=== PATIENT | female | born 1955 | race Two or more races ===

== ENCOUNTER 2022-01-12 23:37 | Emergency (ER) | payer OTHER ==
[~2022-01-12] VITALS: Ht 165.1 cm; Wt 62.1 kg
[2022-01-12] MEDS ORDERED: CLONAZEPAM2 MG PO (23:49)
[2022-01-12] MEDS ORDERED: NEURONTIN800 MG PO (23:49)
[2022-01-12] MEDS ORDERED: SYNTHROID100 MCG PO (23:49)
[2022-01-13] MEDS ORDERED: METRONIDAZOLE500 MG PO (07:16)
[2022-01-13] MEDS ORDERED: CIPROFLOXACIN500 MG PO (07:16)
[2022-01-13] MEDS ORDERED: PEPCID AC20 MG PO (07:16)
[2022-01-13] MEDS ORDERED: INTESTINEX680 M1 PO (07:16)
[2022-01-13] MEDS ORDERED: ACETAMINOPHEN650 M2 PO (07:17)
[2022-01-13] MEDS ORDERED: LEVSIN0.125 MG PO (07:17)
== END 2022-01-13 07:23 | disposition home or self-care (01) ==
LOC: ER 23:37
DX: K57.92 Diverticulitis of intestine, part unspecified, without perforation or abscess without bleeding (principal); R10.84 Generalized abdominal pain; K76.89 Other specified diseases of liver; Z88.2 Allergy status to sulfonamides; Z88.6 Allergy status to analgesic agent

== ENCOUNTER 2022-01-14 11:50 | Outpatient (CLI) | payer OTHER ==
[~2022-01-14 11:50] MED LIST: ACETAMINOPHEN650 M2 PO; CIPROFLOXACIN500 MG PO; CLONAZEPAM2 MG PO; INTESTINEX680 M1 PO; LEVSIN0.125 MG PO; METRONIDAZOLE500 MG PO; NEURONTIN800 MG PO; PEPCID AC20 MG PO; SYNTHROID100 MCG PO
[2022-01-15] MEDS ORDERED: CLONAZEPAM2 MG PO (10:49)
== END 2022-01-14 12:02 | disposition home or self-care (01) ==
LOC: LAB 11:50
PROVIDERS: ATTEND Surgery
DX: R19.7 Diarrhea, unspecified (principal); R19.4 Change in bowel habit; R10.9 Unspecified abdominal pain; I10 Essential (primary) hypertension

== ENCOUNTER 2022-01-15 09:45 | Inpatient (IN) | payer OTHER ==
[~2022-01-15] VITALS: Ht 165.1 cm; Wt 62.1 kg
[2022-01-15] MEDS ORDERED: CLONAZEPAM2 MG PO (10:49)
[2022-01-18] MEDS ORDERED: ACETAMINOPHEN500 M1 (09:45)
[2022-01-18] MEDS ORDERED: MONTELUKAST SOD10 MG (09:45)
[2022-01-18] MEDS ORDERED: TIZANIDINE HCL6 MG (09:46)
[2022-01-18] MEDS ORDERED: ATORVASTATIN CA40 MG (09:46)
[2022-01-18] MEDS ORDERED: GEMFIBROZIL600 MG (09:46)
[2022-01-18] MEDS ORDERED: DULOXETINE HCL30 MG (09:46)
[2022-01-18] MEDS ORDERED: FERROUS SULFAT325 MG (09:46)
[2022-01-21] MEDS ORDERED: ULTRAM50 MG PO (17:09)
[2022-01-21] MEDS ORDERED: LEVSIN/SL0.125 MG SL (17:10)
== END 2022-01-22 00:08 | disposition home or self-care (01) | DRG 331 ==
LOC: SURH 09:45 → O/R 01-18 06:00 → SURH 01-18 07:00
PROVIDERS: ADMIT Surgery; ATTEND Surgery
PROC: 0DBP4ZZ Excision of Rectum, Percutaneous Endoscopic Approach (ICD-10-PCS; 2022-01-18)
PROC: 0DJD8ZZ Inspection of Lower Intestinal Tract, Via Natural or Artificial Opening Endoscopic (ICD-10-PCS; 2022-01-18)
PROC: 0DTN4ZZ Resection of Sigmoid Colon, Percutaneous Endoscopic Approach (ICD-10-PCS; principal; 2022-01-18 07:00)
DX: K57.32 Diverticulitis of large intestine without perforation or abscess without bleeding (principal); I95.89 Other hypotension; R19.7 Diarrhea, unspecified; R19.4 Change in bowel habit; R10.9 Unspecified abdominal pain; Z20.822 Contact with and (suspected) exposure to COVID-19; E03.8 Other specified hypothyroidism

== ENCOUNTER 2022-02-28 16:57 | Emergency (ER) | payer OTHER ==
[~2022-02-28] VITALS: Ht 165.1 cm; Wt 62.1 kg
[~2022-02-28 16:57] MED LIST changes: +ACETAMINOPHEN500 M1; +ATORVASTATIN CA40 MG; +DULOXETINE HCL30 MG; +FERROUS SULFAT325 MG; +GEMFIBROZIL600 MG; +LEVSIN/SL0.125 MG SL; +MONTELUKAST SOD10 MG; +TIZANIDINE HCL6 MG; +ULTRAM50 MG PO
== END 2022-02-28 22:50 | disposition home or self-care (01) ==
LOC: ER 16:57
DX: R10.32 Left lower quadrant pain (principal); R53.1 Weakness; Z88.2 Allergy status to sulfonamides; Z88.8 Allergy status to other drugs, medicaments and biological substances; Z20.822 Contact with and (suspected) exposure to COVID-19

== ENCOUNTER 2022-10-07 19:23 | Inpatient (IN) | payer OTHER ==
[~2022-10-07] VITALS: Ht 167.6 cm; Wt 74.4 kg
[2022-10-07] MEDS ORDERED: KAPSPARGO SPRI100 MG PO (19:30)
[2022-10-09] MEDS ORDERED: TRAZODONE HCL50 MG (11:21)
[2022-10-09] MEDS ORDERED: DULOXETINE HCL60 MG (11:22)
[2022-10-09] MEDS ORDERED: MIRTAZAPINE15 MG (11:22)
[2022-10-11] MEDS ORDERED: CARAFATE1 GM PO (16:13)
[2022-10-11] MEDS ORDERED: PANTOPRAZOLE SO40 MG PO (16:13)
[2022-10-11] MEDS ORDERED: LEVSIN/SL0.125 MG SL (16:14)
== END 2022-10-11 17:30 | disposition home or self-care (01) | DRG 392 ==
LOC: ER 19:23 → SEC-K 10-08 20:16 → MEDI 10-08 20:16
PROVIDERS: ADMIT Surgery; ATTEND Surgery
DX: K52.89 Other specified noninfective gastroenteritis and colitis (principal); K57.32 Diverticulitis of large intestine without perforation or abscess without bleeding; E03.9 Hypothyroidism, unspecified; E78.5 Hyperlipidemia, unspecified; M79.7 Fibromyalgia; I10 Essential (primary) hypertension; Z20.822 Contact with and (suspected) exposure to COVID-19; F41.8 Other specified anxiety disorders

== ENCOUNTER 2022-10-22 13:13 | Inpatient (IN) | payer OTHER ==
[~2022-10-22] VITALS: Ht 165.1 cm; Wt 63.5 kg
[~2022-10-22 13:13] MED LIST changes: +CARAFATE1 GM PO; +DULOXETINE HCL60 MG; +KAPSPARGO SPRI100 MG PO; +MIRTAZAPINE15 MG; +PANTOPRAZOLE SO40 MG PO; +TRAZODONE HCL50 MG
[2022-10-24] MEDS ORDERED: TIZANIDINE HCL6 MG (10:29)
[2022-10-24] MEDS ORDERED: TRAZODONE HCL50 MG (10:29)
[2022-10-27] MEDS ORDERED: LEVSIN/SL0.125 MG SL (10:19)
[2022-10-27] MEDS ORDERED: ATIVAN0.5 M1 PO (10:20)
[2022-10-27] MEDS ORDERED: OXYC1TAB9 PO (10:20)
[2022-10-27] MEDS ORDERED: OMEPRAZOLE40 MG PO (10:21)
[2022-10-27] MEDS ORDERED: CARAFATE1 GM PO (10:21)
[2022-10-27] MEDS ORDERED: IMODIUM A-D2 MG PO (10:22)
[2022-10-27] MEDS ORDERED: CHOLESTYRAMINE P4 GM PO (10:22)
== END 2022-10-27 11:10 | disposition home or self-care (01) | DRG 641 ==
LOC: ER 13:13 → SEC-K 10-23 09:40 → MEDJ 10-23 09:40
PROVIDERS: ADMIT Surgery; ATTEND Surgery
PROC: 0DB98ZX Excision of Duodenum, Via Natural or Artificial Opening Endoscopic, Diagnostic (ICD-10-PCS; principal; 2022-10-24)
PROC: 0DB68ZX Excision of Stomach, Via Natural or Artificial Opening Endoscopic, Diagnostic (ICD-10-PCS; 2022-10-24)
DX: E86.0 Dehydration (principal); K57.32 Diverticulitis of large intestine without perforation or abscess without bleeding; K29.60 Other gastritis without bleeding; K31.7 Polyp of stomach and duodenum; E03.9 Hypothyroidism, unspecified; I10 Essential (primary) hypertension; Z20.822 Contact with and (suspected) exposure to COVID-19; F32.9 Major depressive disorder, single episode, unspecified

== ENCOUNTER 2022-11-01 08:44 | Outpatient (CLI) | payer OTHER ==
[~2022-11-01 08:44] MED LIST changes: +ATIVAN0.5 M1 PO; +CHOLESTYRAMINE P4 GM PO; +IMODIUM A-D2 MG PO; +OMEPRAZOLE40 MG PO; +OXYC1TAB9 PO
== END 2022-11-01 08:52 | disposition home or self-care (01) ==
LOC: MRI 08:44
PROVIDERS: ATTEND Surgery
DX: K57.32 Diverticulitis of large intestine without perforation or abscess without bleeding (principal); R19.7 Diarrhea, unspecified; R19.4 Change in bowel habit; R10.9 Unspecified abdominal pain; K30 Functional dyspepsia; K29.00 Acute gastritis without bleeding
CPT/HCPCS: 72197; 74183; Q9965; 72196; 74182

== ENCOUNTER 2022-11-04 20:57 | Inpatient (IN) | payer OTHER ==
[~2022-11-04] VITALS: Ht 165.1 cm; Wt 63.5 kg
[2022-11-05] MEDS ORDERED: CLONAZEPAM2 MG (13:49)
[2022-11-05] MEDS ORDERED: PANTOPRAZOLE SO40 MG (13:49)
[2022-11-05] MEDS ORDERED: TIZANIDINE HCL6 MG (13:49)
[2022-11-05] MEDS ORDERED: GABAPENTIN800 M1 (13:49)
[2022-11-05] MEDS ORDERED: TRAZODONE HCL50 MG (13:50)
[2022-11-05] MEDS ORDERED: METOPROLOL SUCC50 MG (13:50)
[2022-11-05] MEDS ORDERED: SUCRALFATE1 GM (13:50)
[2022-11-09] MEDS ORDERED: INTESTINEX680 M1 PO (12:28)
== END 2022-11-09 14:31 | disposition home or self-care (01) | DRG 392 ==
LOC: ER 20:57 → SURG 11-05 13:22 → SEC-K 11-05 13:22 → SURG 11-06 01:53
PROVIDERS: ADMIT Surgery; ATTEND Surgery
PROC: 02HV33Z Insertion of Infusion Device into Superior Vena Cava, Percutaneous Approach (ICD-10-PCS; 2022-11-05)
PROC: 0DJD8ZZ Inspection of Lower Intestinal Tract, Via Natural or Artificial Opening Endoscopic (ICD-10-PCS; principal; 2022-11-08)
DX: K57.30 Diverticulosis of large intestine without perforation or abscess without bleeding (principal); D25.9 Leiomyoma of uterus, unspecified; N83.299 Other ovarian cyst, unspecified side; E03.9 Hypothyroidism, unspecified; M79.7 Fibromyalgia; F32.9 Major depressive disorder, single episode, unspecified; Z20.822 Contact with and (suspected) exposure to COVID-19

== ENCOUNTER → 2022-11-18 | Emergency (ER) | payer OTHER ==
[~2022-11-18] VITALS: Ht 165.1 cm; Wt 63.5 kg
[~2022-11-18] MED LIST changes: +CLONAZEPAM2 MG; +GABAPENTIN800 M1; +LISINOPRIL10 MG; +METOPROLOL SUCC50 MG; +PANTOPRAZOLE SO40 MG; +SUCRALFATE1 GM; +XIFAXAN550 MG
== END | disposition home or self-care (01) ==
LOC: ER 22:02
DX: R10.9 Unspecified abdominal pain (principal); Z88.2 Allergy status to sulfonamides; Z91.040 Latex allergy status; Z88.8 Allergy status to other drugs, medicaments and biological substances; Z98.890 Other specified postprocedural states; R11.2 Nausea with vomiting, unspecified; R19.7 Diarrhea, unspecified

== ENCOUNTER 2022-11-27 20:00 | Inpatient (IN) | payer OTHER ==
[~2022-11-27] VITALS: Ht 165.1 cm; Wt 64.0 kg
[~2022-11-27 20:00] MED LIST changes: -LISINOPRIL10 MG; -XIFAXAN550 MG
--- NOTE | 2022-11-27 20:13 | NUR ---
PTE RECIBIDA EN AMBULANCIA QUIEN REFIERE VOMITOS,DIARREAS Y DOLOR ABDOMINAL DESDE JESSICA,RERFIERE FUE OPERADA DE COLON HACE 8 MESES.
--- NOTE | 2022-11-27 21:07 | NUR ---
MS ALMEIDA ORIENTA PTE SOBRE TX MEDICO EL CUAL REFIERE ENTENDER,SE LE EXTRAEN MUESTRAS BAJO MEDIDAS ASEPTICAS.SE CANALIZA Y SE ADMINISTRA MEDICAMENTOS ALEN ORDEN MEDICA.SE NOTIFICA ESTUDIO PENDIENTE.
--- NOTE | 2022-11-27 23:24 | NUR ---
SE RECIBE PTE ALERTA Y ORIENTADA X3 EN CAMA CON BARANDAS ELEVADAS. PTE CANALIZADA EN MANO DERECHA AREA GUALBERTO DE EDEMA Y DE ENROJECIMIENTO. PTE EN ESPERA DE OMAR DE MUESTRA DE U/A Y U/C. SE EDUCA DE LA OMAR DEL MISMO Y REFIERE ENTENEDER. SE MANTIENE PTE BAJO OBSERVACION.
--- NOTE | 2022-11-28 06:58 | NUR ---
SE RECIBE PACIENTE FEMENINA ALERTA Y ORIENTADA X3, EN DAMIAN #[id number] CON BARRANDAS ELEVADAS. AREA DE VENOPUNCION EN BRAZO DERECHO CON UN 0.9 NSS 1,000 BAJANDO A 200ML/HR PATENTE GUALBERTO DE EDEMA Y ENROJECIMIENTO. PENDIENTE A RE-EVALUACION. SE LE HEMANT EN TODO MOMENTO PRIVACIDAD Y SEGURIDAD.
[2022-11-29] MEDS ORDERED: GABAPENTIN800 M1 (08:03)
[2022-11-29] MEDS ORDERED: PANTOPRAZOLE SO40 MG (08:03)
[2022-11-29] MEDS ORDERED: TIZANIDINE HCL6 MG (08:03)
[2022-11-29] MEDS ORDERED: XIFAXAN550 MG (08:03)
[2022-11-29] MEDS ORDERED: LISINOPRIL10 MG (08:03)
[2022-11-29] MEDS ORDERED: SUCRALFATE1 GM (08:03)
[2022-12-05] MEDS ORDERED: PEPCID AC20 MG PO (14:20)
[2022-12-05] MEDS ORDERED: GABAPENTIN400 MG PO (14:20)
== END 2022-12-05 18:48 | disposition home or self-care (01) | DRG 948 ==
LOC: ER 20:00 → SURH 11-28 14:57
PROVIDERS: ADMIT Surgery; ATTEND Surgery
PROC: BW21ZZZ Computerized Tomography (CT Scan) of Abdomen and Pelvis (ICD-10-PCS; principal; 2022-11-27)
DX: G89.18 Other acute postprocedural pain (principal); N17.8 Other acute kidney failure; R10.32 Left lower quadrant pain; K62.89 Other specified diseases of anus and rectum; K58.0 Irritable bowel syndrome with diarrhea; E86.9 Volume depletion, unspecified; E86.0 Dehydration; K57.30 Diverticulosis of large intestine without perforation or abscess without bleeding; E03.9 Hypothyroidism, unspecified; F41.8 Other specified anxiety disorders; Z20.822 Contact with and (suspected) exposure to COVID-19

== ENCOUNTER 2022-12-22 21:25 | Inpatient (IN) | payer OTHER ==
[~2022-12-22] VITALS: Ht 165.1 cm; Wt 64.4 kg
[~2022-12-22 21:25] MED LIST changes: +GABAPENTIN400 MG PO; +LISINOPRIL10 MG; +XIFAXAN550 MG
--- NOTE | 2022-12-22 21:37 | NUR ---
PTE ALERTA Y ORIENTADA X3 EN AMBULANCIA EN COMPANIA DE PARAMEDICOS. PTE REFIERE DOLOR ABDOMINAL, DIAREAS X6 DESDE HOY EN LA MANANA. SE MIDEN S/V Y SE UBICA EN LA DAMIAN 7.
--- NOTE | 2022-12-22 21:54 | NUR ---
IV LINE IS STARTED ON PATIENT'S ARM AND LAB SAMPLES ARE TAKEN. SALINE LOCK IS PLACED AND IM MEDS AND IV FLUIDS ARE ADMINSITERED.
--- NOTE | 2022-12-23 07:59 | NUR ---
SE RECIBE PACIENTE ALERTA Y ORIENTADA X3 EN DAMIAN. PTE CON VENOPUNCION PATENTE Y GUALBERTO DE EDEMA BAJAND0 0.9NSS @150ML/HR.
== END 2023-01-02 19:20 | disposition home or self-care (01) | DRG 392 ==
LOC: ER 21:25 → MEDJ 12-23 17:25 → EDBD 12-23 17:25 → SEC-K 12-23 17:25 → MEDJ 12-23 18:08
PROVIDERS: ADMIT Internal Medicine; ATTEND Internal Medicine
PROC: CF241ZZ Tomographic (Tomo) Nuclear Medicine Imaging of Gallbladder using Technetium 99m (Tc-99m) (ICD-10-PCS; 2022-12-23)
PROC: 0DB28ZX Excision of Middle Esophagus, Via Natural or Artificial Opening Endoscopic, Diagnostic (ICD-10-PCS; 2022-12-27)
PROC: 0DB78ZX Excision of Stomach, Pylorus, Via Natural or Artificial Opening Endoscopic, Diagnostic (ICD-10-PCS; 2022-12-27)
PROC: 0DB68ZX Excision of Stomach, Via Natural or Artificial Opening Endoscopic, Diagnostic (ICD-10-PCS; 2022-12-27)
PROC: BB24ZZZ Computerized Tomography (CT Scan) of Bilateral Lungs (ICD-10-PCS; principal; 2022-12-28)
DX: K57.32 Diverticulitis of large intestine without perforation or abscess without bleeding (principal); K29.00 Acute gastritis without bleeding; E03.8 Other specified hypothyroidism

== ENCOUNTER 2023-01-14 10:54 | Emergency (ER) | payer OTHER ==
[~2023-01-14] VITALS: Ht 157.5 cm; Wt 63.0 kg
== END 2023-01-14 17:55 | disposition home or self-care (01) ==
LOC: ER 10:54
DX: S00.93XA Contusion of unspecified part of head, initial encounter (principal); S93.401A Sprain of unspecified ligament of right ankle, initial encounter; W18.30XA Fall on same level, unspecified, initial encounter; Y93.89 Activity, other specified; Y92.018 Other place in single-family (private) house as the place of occurrence of the external cause; Y99.9 Unspecified external cause status; Z88.2 Allergy status to sulfonamides; Z88.8 Allergy status to other drugs, medicaments and biological substances; Z91.040 Latex allergy status; I10 Essential (primary) hypertension

== ENCOUNTER 2023-05-21 23:56 | Emergency (ER) | payer OTHER ==
[~2023-05-21] VITALS: Ht 165.1 cm; Wt 61.2 kg
[2023-05-22 03:38] LABS: INR 0.96; PARTIAL THROMBOPLASTIN TIME 21.1 SECONDS (22.0-34.0); PROTHROMBIN TIME 10.1 SECONDS (9.0-11.5)
[2023-05-22 03:46] LABS: ALBUMIN 3.9 gm/dL (3.4-5.0); BILIRUBIN TOTAL 0.51 mg/dL (0.3-1.2); BILIRUBIN,CONJUGATED 0.11 mg/dL (0.0-0.2); BILIRUBIN,UNCONJUGATED 0.4 mg/dL (0.0-0.6); CALCIUM 9.3 mg/dL (8.5-10.1); CREATININE SERUM 1.24 mg/dL (0.55-1.02); GFR 43.28; GLOBULINA 3.7 G/DL (2.4-3.5); POTASSIUM 3.82 mEq/L (3.5-5.1); TOTAL PROTEIN 7.6 gm/dL (6.4-8.2)
[2023-05-22 04:35] LABS: HEMATOCRIT 35.3 % (36.0-45.00); HEMOGLOBIN 11.9 g/dL (12.0-15.00); MEAN CELL VOLUME 85.5 fL (80.00-100.00); MEAN CORPUSCULAR HEMOGLOBIN 28.8 pg (27.00-32.0); MEAN CORPUSCULAR HGB CONC 33.7 g/dl (32.0-36.0); PLATELET COUNT 224 K/uL (150-450); RED BLOOD COUNT 4.13 M/uL (4.00-6.00); RED CELL DISTRIBUTION WIDTH 13.8 % (11.5-14.5)
[2023-05-22 06:10] LABS: PH,URINE 7.5 (5.0-8.0); URINE APPEARANCE Clear; URINE BILIRRUBIN Negative (NEGATIVE); URINE BLOOD Negative; URINE COLOR Yellow; URINE GLUCOSE Negative (NEGATIVE); URINE LEUKOCYTE Negative; URINE NITRATE Negative; URINE PROTEIN Negative (NEGATIVE); URINE UROBILINOGEN 0.2 E.U./dl
[2023-05-22 07:17] LABS: URINE BACTERIA 1.2 uL (0.0-1933); URINE EPITHELIAL CELLS 0.6 uL (0.0-38.8); URINE RBC 1.7 uL (0.0-20.8); URINE WBC 0.6 uL (0.0-23.2)
== END 2023-05-22 14:54 | disposition home or self-care (01) ==
LOC: ER 23:56
PROVIDERS: General Practice
DX: R10.32 Left lower quadrant pain (principal); K57.32 Diverticulitis of large intestine without perforation or abscess without bleeding; I10 Essential (primary) hypertension; E03.9 Hypothyroidism, unspecified; Z88.2 Allergy status to sulfonamides; Z91.040 Latex allergy status; Z88.6 Allergy status to analgesic agent; Z98.890 Other specified postprocedural states; K57.30 Diverticulosis of large intestine without perforation or abscess without bleeding
CPT/HCPCS: 36415; 74177; 96365; 96366; 99284; J0744; J2250; J3490; J7030; Q9965

== ENCOUNTER 2023-11-16 01:36 | Emergency (ER) | payer OTHER ==
[~2023-11-16] VITALS: Ht 165.1 cm; Wt 59.0 kg
[2023-11-16] MEDS ORDERED: MEPERIDINE HCL/PF 50 MG/ML VIAL IM STA (04:41)
[2023-11-16] MEDS ORDERED: PROMETHAZINE HCL 50 MG/ML AMPUL IM STA (04:42)
[2023-11-16 05:04] LABS: PH,URINE 6.5 (5.0-8.0); URINE APPEARANCE Clear; URINE BILIRRUBIN Negative (NEGATIVE); URINE BLOOD Negative; URINE COLOR Yellow; URINE GLUCOSE Negative (NEGATIVE); URINE LEUKOCYTE Negative; URINE NITRATE Negative; URINE PROTEIN Negative (NEGATIVE); URINE UROBILINOGEN 0.2 E.U./dl
[2023-11-16 05:08] LABS: URINE BACTERIA 13.8 uL (0.0-1933); URINE RBC 3.1 uL (0.0-20.8)
[2023-11-16 05:20] LABS: INR < 0.93; PARTIAL THROMBOPLASTIN TIME 27.6 SECONDS (22.0-34.0); PROTHROMBIN TIME 9.7 SECONDS (9.0-11.5)
[2023-11-16 05:24] LABS: ALBUMIN 4.1 gm/dL (3.4-5.0); BILIRUBIN TOTAL 0.51 mg/dL (0.3-1.2); CALCIUM 9.5 mg/dL (8.5-10.1); CREATININE SERUM 1.11 mg/dL (0.55-1.02); GFR 49.18; GLOBULINA 4.3 G/DL (2.4-3.5); POTASSIUM 4.29 mEq/L (3.5-5.1); TOTAL PROTEIN 8.4 gm/dL (6.4-8.2)
[2023-11-16 06:00] LABS: URINE EPITHELIAL CELLS 1.2 uL (0.0-38.8); URINE WBC 0.7 uL (0.0-23.2)
[2023-11-16 06:13] LABS: HEMATOCRIT 39.3 % (36.0-45.00); HEMOGLOBIN 13.4 g/dL (12.0-15.00); MEAN CELL VOLUME 85.6 fL (80.00-100.00); MEAN CORPUSCULAR HEMOGLOBIN 29.1 pg (27.00-32.0); PLATELET COUNT 242 K/uL (150-450); RED CELL DISTRIBUTION WIDTH 13.9 % (11.5-14.5)
[2023-11-16] MEDS ORDERED: TRAMADOL HCL 50 MG TABLET PO STA (10:50)
== END 2023-11-16 11:28 | disposition home or self-care (01) ==
LOC: ER 01:36
DX: R10.2 Pelvic and perineal pain (principal); Z88.2 Allergy status to sulfonamides; Z91.040 Latex allergy status; K57.30 Diverticulosis of large intestine without perforation or abscess without bleeding; N83.292 Other ovarian cyst, left side; N83.291 Other ovarian cyst, right side
CPT/HCPCS: 36415; 74176; 76856; 96372; 99284; J2250; J3490